=== PATIENT | male | born 1960 | race Caucasian/White ===

== ENCOUNTER 2022-01-21 10:31 | Day surgery (SDC) | payer OTHER ==
[2022-01-14 16:15] LABS: BASOPHILS % (AUTO) 0.4 % (0-1); EOSINOPHILS # (AUTO) 0.2 X10'3 (0-0.9); EOSINOPHILS % (AUTO) 1.9 % (0-6); LYMPHOCYTES # (AUTO) 2.8 X10'3 (1.1-4.8); LYMPHOCYTES % (AUTO) 30.1 % (21-51); MEAN CORPUSCULAR HEMOGLOBIN 30.9 PG (27.0-31.0); MEAN CORPUSCULAR HGB CONC 34.2 g/dL (33.0-36.5); MEAN CORPUSCULAR VOLUME 90.5 FL (78-98); MEAN PLATELET VOLUME 9.7 FL (7.4-10.4); MONOCYTES # (AUTO) 0.7 X10'3 (0-0.9); MONOCYTES % (AUTO) 7.2 % (2-12); NEUTROPHILS # (AUTO) 5.5 X10'3 (1.8-7.7); NEUTROPHILS % (AUTO) 60.4 % (42-75); PRE OP HEMATOCRIT 42.1 % (42.0-52.0); PRE OP HEMOGLOBIN 14.4 g/dL (14.0-17.9); PRE OP PLATELET COUNT 226 X10'3 (140-440); RED BLOOD COUNT 4.66 X10'6 (4.70-6.10); RED CELL DISTRIBUTION WIDTH 13.7 % (11.5-14.5)
[2022-01-14 16:30] LABS: ALBUMIN 3.9 G/DL (3.4-5.0); ALBUMIN/GLOBULIN RATIO 1.1 (1.1-1.5); ALKALINE PHOSPHATASE 105 IU/L (46-116); BLOOD UREA NITROGEN 27 MG/DL (7-18); BUN/CREATININE RATIO 25.2 (5.4-32.0); CALCIUM 8.8 MG/DL (8.5-10.1); CHLORIDE 106 MMOL/L (99-107); CREATININE 1.07 MG/DL (0.60-1.10); PRE OP ALT 30 U/L (30-65); PRE OP ANION GAP 8 (8-16); PRE OP AST 16 U/L (10-37); PRE OP BILIRUB, TOTAL 0.2 MG/DL (0.0-1.0); PRE OP GLUCOSE 91 MG/DL (70-104); PRE OP SODIUM 142 MMOL/L (135-145); TOTAL CARBON DIOXIDE 27.9 MMOL/L (24-32); TOTAL PROTEIN 7.3 G/DL (6.4-8.2); eGFR 70 ML/MIN
[~2022-01-21] VITALS: Ht 170.2 cm; Wt 98.2 kg
[2022-01-21] VITALS (10 sets, daily range): BP systolic 134–162; BP diastolic 84–101
[~2022-01-21 10:31] MED LIST: DICL20GE TOP; IBUP-1986 PO; MAGN400C PO; TESTOSTERONE; ceFAZolin inj. 2,000 MG in dextrose 5%-water 100 ML IV ONE; famotidine 20mg tablet PO ONE; meperidine/PF 25mg/ml syringe IV PRN; morphine 2 MG/ML inj. syringe IV PRN; morphine 4 MG/ML inj SYRINge IV PRN; ondansetron/PF 4mg/2ml inj IV PRN; proCHLORperazine 10 MG/2 ml inj IV PRN; ringers solution, lacted 1,000 ML IV SCH
[2022-01-21] MEDS ORDERED: fentaNYL/PF 50MCG/1 ML 2ML syringe ONE (11:58)
[2022-01-21] MEDS ORDERED: meperidine/PF 25mg/ml syringe ONE (11:58)
[2022-01-21] MEDS ORDERED: midazolam 1 mg/ML 2ml injection ONE (11:58)
[2022-01-21 12:03] LABS: PRE OP PROTIME 10.6 SECONDS (9.0-12.0)
[2022-01-21] MEDS ORDERED: ondansetron/PF 4mg/2ml inj ONE (12:14)
[2022-01-21] MEDS ORDERED: propofol 10mg/ml 20ml vial IV ONE (12:14)
[2022-01-21] MEDS ORDERED: desflurane 240ml liquid inh. IH ONE (12:14)
[2022-01-21] MEDS ORDERED: LIDOcaine 1% (10mg/ml)w/preservative inj. 20ml MDV ONE (12:14)
[2022-01-21] MEDS ORDERED: ketorolac trometh. 30mg/ml inj. ONE (12:14)
[2022-01-21] MEDS ORDERED: dexamethasone sod phosphate 10mg/ml inj ONE (12:14)
[2022-01-21] MEDS ORDERED: BUPIVAcaine/PF 5 mg/ml 10ml ONE (12:50)
--- NOTE | 2022-01-21 13:20 | NUR ---
Received from OR via [facility], accompanied by Anesthesiologist DR SANTIAGO and report given by Anesthesiolgist. PT IS GROGGY BUT RESPONDS TO VERBAL STIMULI. PT PLACED ON BEDSIDE MONITOR. VSS. PT RECEIVING 8L O2 TO MASK AND TOLERATING WELL, O2 SAT >96%. WILL TITRATE DOWN PT TOLERATES. PT HAS 20G PIV TO RT FA WITH LR INFUSING ORDERED. PT HAS GAUZE WITH MEDIPORE TAPE OVER THAT IS CDI. PT HAS ABD BINDER IN PLACE THAT IS CDI. PT DENIES PAIN AT THIS TIME. WILL CONTINUE TO ASSESS
[2022-01-21] MEDS: meperidine/PF 25mg/ml syringe IV PRN ×2 (13:43→14:06)
--- NOTE | 2022-01-21 15:20 | NUR ---
ALL DISCHARGE CRITERIA HAS BEEN MET. VSS, PAIN AT A TOLERABLE LEVEL, ABLE TO SAFELY AMBULATE AND TRANSFER SELF. IV TAKEN OUT WITHOUT ANY COMPLICATIONS. ALL DISCHARGE INSTRUCTIONS COVERED WITH PATIENT AND ALL QUESTIONS ANSWERED. PATIENT TAKEN OUT VIA WHEELCHAIR TO PERSONAL VEHICLE WHERE FRIEND DROVE PATIENT HOME.
== END 2022-01-21 15:15 | disposition home or self-care (01) ==
LOC: PAS 10:31
PROVIDERS: ATTEND Surgery
DX: K42.9 Umbilical hernia without obstruction or gangrene (principal); F32.9 Major depressive disorder, single episode, unspecified; Z79.899 Other long term (current) drug therapy; Z98.890 Other specified postprocedural states; Z87.891 Personal history of nicotine dependence
CPT/HCPCS: 36415; 49585; 80053; 82948; 85025; 85610; 87811; J0690; J2175; J3490; J7030; J7060; J7120; Z7506; Z7508; Z7512; A4215; A4615; A4618; A6449; A7000; J1100; J1885; J2250; J2405; J2704; J3010